=== PATIENT | female | born 1995 | race Caucasian/White ===

== ENCOUNTER 2017-02-13 11:11 | Emergency (ER) | payer MEDICAID, OTHER ==
[2017-02-13] MEDS ORDERED: Lactated Ringers 1,000 ML IV ONE (11:49)
[2017-02-13] MEDS ORDERED: Metoclopramide 10 MG/2 ML SDV IVPUSH ONE (11:50)
--- NOTE | 2017-02-13 11:59 | EDM.PDOC ---
ED HPI GI/ABDOMINAL - General Chief Complaint: Abdominal Pain Stated Complaint: STOMACH PAIN Time Seen by Provider: 02/13/17 11:45 Source: Reports: Patient History Limitations: Reports: No limitations - History of Present Illness INITIAL COMMENTS - FREE TEXT/NARRATIVE: 21 yo female presents with several days of nausea, vomiting, diarrhea, and epigastric tenderness. No bleeding or fever. Has not been to the clinic. No known exposures. Is not . No dysuria. PHx of gastritis. Symptom Onset Date: 02/10/17 Timing/Duration: Reports: Day(s):, Waxing/waning Location: other (epigastric) Quality: Reports: burning Severity: moderate Improves with: Reports: other (none) Worsens with: Reports: other (eating) Context: Reports: other (unknown) Associated Symptoms (-Female): Reports: diarrhea, loss of appetite, nausea/ vomiting. Denies: constipation, bloody stools, fever/chills Treatment(s) DELIVERY TECH: Reports: Other (see below) (none) - Related Data Allergies/ADRs: Allergies Allergy/AdvReac Type Severity Reaction Status Date / Time No Known Allergies Allergy Verified 02/13/17 11:35 Home Meds: Home Meds Promethazine [Phenadoz] 25 mg RECTAL Q6H PRN #10 supp 07/17/16 [Rx] Famotidine 40 mg PO DAILY #30 tablet 02/13/17 [Rx] Omeprazole Magnesium [Prilosec Otc] 20 mg BID 02/13/17 [History] Ondansetron [Zofran ODT] 4 mg PO Q6H PRN #10 tab.dis 02/13/17 [Rx] Past Medical History HEENT History: Reports: None Cardiovascular History: Reports: None Respiratory History: Reports: None Gastrointestinal History: Reports: PUD Other Gastrointestinal History: pt stated she has stomach ulcer Genitourinary History: Reports: None [employer] WORK[employer] History: Reports: None Musculoskeletal History: Reports: None Neurological History: Reports: Migraines Psychiatric History: Reports: None Endocrine/Metabolic History: Reports: Obesity/BMI 30+ Hematologic History: Reports: None Immunologic History: Reports: None Oncologic (Cancer) History: Reports: None Dermatologic History: Reports: None - Infectious Disease History Infectious Disease History: Reports: Chicken pox - Past Surgical History Head Surgeries/Procedures: Reports: None GI Surgical History: Reports: EGD, Hernia repair/other Social & Family History - Family History Family Medical History: Noncontributory - Tobacco Use Smoking Status *Q: Former Smoker Years of Tobacco use: 1 Second Hand Smoke Exposure: No - Caffeine Use Caffeine Use: Reports: Soda - Recreational Drug Use Recreational Drug Use: No ED ROS GENERAL - Review of Systems Review Of Systems: See Below Constitutional: Reports: decreased appetite. Denies: fever, chills, diaphoresis , weight loss, weight gain HEENT: Reports: No symptoms Respiratory: Reports: No Symptoms Cardiovascular: Reports: No symptoms Endocrine: Reports: no symptoms GI/Abdominal: Reports: Abdominal pain, Diarrhea, Decreased appetite, Nausea, Vomiting. Denies: Black stool, Bloody stool, Constipation, Distension, Hematemesis, Hematochezia, Melena, Mucous in stool, Stool incontinence : Reports: no symptoms Musculoskeletal: Reports: no symptoms Skin: Reports: no symptoms Neurological: Reports: No Symptoms Psychiatric: Reports: No symptoms ED EXAM, GI/ABD - Physical Exam Exam: See Below Exam Limited By: No limitations General Appearance: alert, WD/WN, no apparent distress, obese Eyes: bilateral: normal appearance Ears: normal external exam, normal canal, hearing grossly normal Nose: normal inspection, normal mucosa, no blood Throat/Mouth: Normal inspection, Normal lips, Normal oropharynx, Normal voice, No airway compromise Head: atraumatic, normocephalic Neck: normal inspection, supple Respiratory/Chest: no respiratory distress, lungs clear, normal breath sounds, no accessory muscle use Cardiovascular: regular rate, rhythm, no edema GI/Abdominal: normal bowel sounds, soft, non tender Back Exam: normal inspection, full range of motion Extremities: normal inspection, normal range of motion, non-tender, no pedal edema Neurological: alert, oriented, CN II-XII intact, normal cognition, no motor/ sensory deficits Psychiatric: normal affect, normal mood Skin Exam: Warm, Dry, Intact, Normal color, No rash Lymphatic: no adenopathy Course - Vital Signs Text/Narrative:: LR 1000 ml IV, Reglan 10 mg IV, KCL 40 meq po, Lomotil 2 po, acetaminophen 1000 mg po, famotidine 40 mg po, GI cocktail po(no change) Last Recorded V/S: Last Vital Signs Temp 36.9 C 02/13/17 13:13 Pulse 63 02/13/17 11:28 Resp 18 02/13/17 13:13 BP 135/89 02/13/17 13:13 Pulse Ox 99 02/13/17 13:13 - Orders/Labs/Meds Orders: Active Orders 24 hr Category Date Time Status HELICOBACT PYLORI,AB IGG & IGA [REF] Stat Lab 02/13/17 13:50 Received Labs: Laboratory Tests 02/13/17 02/13/17 Range/Units 12:02 12:02 WBC 11.0 (4.5-12.0) X10-3/uL RBC 4.48 (3.23-5.20) x10(6)uL Hgb 13.4 (11.5-15.5) g/dL Hct 39.3 (30.0-51.3) % MCV 87.6 (80-96) fL MCH 29.8 (27.7-33.6) pg MCHC 34.0 (32.2-35.4) g/dL RDW 12.9 (11.5-15.5) % Plt Count 327 (125-369) X10(3)uL Sodium 135 (135-145) mmol/L Potassium 3.2 L (3.5-5.3) mmol/L Chloride 104 (100-110) mmol/L Carbon Dioxide 25 (23-29) mmol/L BUN 9 (5-20) mg/dL Creatinine 0.6 (0.6-1.3) mg/dL Est Cr Clr Drug Dosing 136.51 mL/min Estimated GFR (MDRD) > 60 (>60) BUN/Creatinine Ratio 15.0 (9-20) Glucose 110 (80-116) mg/dL Calcium 9.3 (8.6-10.2) mg/dL Total Bilirubin 1.3 (0.1-1.3) mg/dL AST 33 H D (5-27) IU/L ALT 37 H D (14-26) IU/L Alkaline Phosphatase 61 (56-112) IU/L Total Protein 7.6 (6.0-8.0) g/dL Albumin 4.2 (3.5-5.2) g/dL Globulin 3.4 g/dL Albumin/Globulin Ratio 1.2 Amylase 43 (28-100) U/L Meds: Medications Discontinued Medications Generic Name Dose Route Start Last Admin Trade Name Freq PRN Reason Stop Dose Admin Acetaminophen 1,000 mg 02/13/17 13:09 02/13/17 13:43 Tylenol Extra Strength PO 02/13/17 13:10 1,000 mg ONETIME ONE Administration Al Hydroxide/Mg Hydroxide 15 0 ml 02/13/17 13:40 02/13/17 13:56 ml/ Lidocaine HCl 15 ml PO 02/13/17 13:41 30 ml ONETIME ONE Administration Diphenoxylate HCl/Atropine 2 tab 02/13/17 12:49 02/13/17 13:55 Lomotil 0.025-2.5 Mg PO 02/13/17 12:50 2 tab ONETIME ONE Administration Famotidine 40 mg 02/13/17 13:40 02/13/17 13:54 Pepcid PO 02/13/17 13:41 40 mg ONETIME ONE Administration Lactated Ringer's 1,000 mls @ 1,000 mls/hr 02/13/17 11:49 02/13/17 12:39 Ringers, Lactated IV 02/13/17 12:48 1,000 mls/hr BOLUS ONE Administration Metoclopramide HCl 10 mg 02/13/17 11:50 02/13/17 12:40 Reglan IVPUSH 02/13/17 11:51 10 mg ONETIME ONE Administration Potassium Chloride 40 meq 02/13/17 12:16 02/13/17 12:44 Klor-Con 10 PO 02/13/17 12:17 40 meq ONETIME ONE Administration Potassium Chloride Confirm 02/13/17 12:42 Klor-Con 10 Administered 02/13/17 12:43 Dose 10 meq .ROUTE .STK-MED ONE Potassium Chloride Confirm 02/13/17 12:43 02/13/17 13:43 Klor-Con M20 Administered 02/13/17 12:44 Not Given Dose 20 meq .ROUTE .STK-MED ONE Departure - Departure Time of Disposition: 14:25 Disposition: Home, Self-Care 01 Condition: fair Clinical Impression: Gastroenteritis, Dehydration, mild, Hypokalemia Gastritis Qualifiers: Gastritis type: unspecified gastritis Chronicity: acute Gastritis bleeding: without bleeding Qualified Code(s): K29.00 - Acute gastritis without bleeding Prescriptions: Famotidine 40 mg PO DAILY #30 tablet Ondansetron [Zofran ODT] 4 mg PO Q6H PRN #10 tab.dis PRN Reason: Nausea Referrals: PCP,None [Primary Care Provider] - Forms: ED Department Discharge Care Plan Goals: Return for a fasting gallbladder ultrasound. Take acetaminophen 1000 mg every 6 hrs for pain relief. Take Zofran every 6 hrs as needed for nausea relief. Take famotidine 40 mg every evening for gastritis. Avoid ibuprofen, aspirin, Aleve, carbonated beverages, alcohol, or tobacco products. Get established right away with a doctor of your choice to see for ER follow up and to review outstanding tests with. Loperamide per package instructions for diarrhea relief. BRAT diet with clear liquids until feeling better, then advance diet slowly as tolerated. - My Orders Last 24 Hours: My Active Orders 02/13/17 13:50 HELICOBACT PYLORI,AB IGG & IGA [REF] Stat - Assessment/Plan Last 24 Hours: My Active Orders 02/13/17 13:50 HELICOBACT PYLORI,AB IGG & IGA [REF] Stat
[2017-02-13] MEDS ORDERED: Potassium Chloride 10 MEQ Tab.ER PO ONE (12:16)
[2017-02-13] MEDS ORDERED: Potassium Chloride 10 MEQ Tab.ER ONE (12:42)
[2017-02-13] MEDS ORDERED: Potassium Chloride 20 MEQ Tab.ER ONE (12:43)
[2017-02-13] MEDS ORDERED: Atropine/Diphenoxylate 0.025-2.5 MG Tab PO ONE (12:49)
[2017-02-13] MEDS ORDERED: Acetaminophen 500 MG Tab PO ONE (13:09)
[2017-02-13] MEDS ORDERED: Famotidine 20 MG Tab PO ONE (13:40)
[2017-02-13] MEDS ORDERED: Alum Hydroxide/Mag Hydroxide 15 ML, Lidocaine 2% 15 ML PO ONE ×2 (13:40)
[2017-02-13 15:39] VITALS: BP 148/103
== END 2017-02-13 14:30 | disposition home or self-care (01) ==
LOC: FB.ED 11:11
DX: K29.00 Acute gastritis without bleeding (principal); K52.9 Noninfective gastroenteritis and colitis, unspecified; E86.0 Dehydration; E87.6 Hypokalemia; E66.9 Obesity, unspecified; G43.909 Migraine, unspecified, not intractable, without status migrainosus; Z87.891 Personal history of nicotine dependence; Z79.899 Other long term (current) drug therapy
CPT/HCPCS: 80053; 82150; 85027; 86677; 96361; 96374; 99283; A9270; J2765; J7120; 99284